=== PATIENT | female | born 1935 | race Caucasian/White ===

== ENCOUNTER → 2017-06-05 08:48 | Outpatient (CLI) | payer MEDICARE, OTHER ==
[2009-06-16 08:25] VITALS: BMI 22.8
== END | disposition home or self-care (01) ==
LOC: D.RAD 05-29 09:30
DX: D64.9 Anemia, unspecified (principal)

== ENCOUNTER 2018-01-18 04:09 | Inpatient (IN) | payer MEDICARE, OTHER ==
[2018-01-18] VITALS (21 sets, daily range): BP systolic 95–159; BP diastolic 6–75; Ht 162.6 cm; Wt 68.0 kg
[~2018-01-18] VITALS: Ht 162.6 cm; Wt 68.0 kg
[2018-01-18] MEDS ORDERED: CYCLOBENZAPRINE10 MG PO (04:18)
[2018-01-18] MEDS ORDERED: COZAAR25 MG PO (04:19)
[2018-01-18] MEDS ORDERED: VOLTAREN100 GM TOPICAL (04:19)
[2018-01-18] MEDS ORDERED: TEMOVATE30 GM TOPICAL (04:20)
[2018-01-18] MEDS ORDERED: VALTREX500 MG PO (04:20)
[2018-01-18] MEDS ORDERED: PROAIR HFA8.5 GM INH (04:20)
[2018-01-18] MEDS ORDERED: ADVAIR 250/501 DISK INH (04:20)
[2018-01-18] MEDS ORDERED: EFFEXOR XR37.5 MG PO (04:21)
[2018-01-18] MEDS ORDERED: ANASTROZOLE1 MG PO (04:21)
[2018-01-18] MEDS ORDERED: VITAMIN B-1250 MG PO (04:21)
[2018-01-18] MEDS ORDERED: MELATONIN5 MG PO (04:21)
[2018-01-18] MEDS ORDERED: NYSTATIN OINTME15 GM TOPICAL (04:21)
[2018-01-18] MEDS ORDERED: UNISOM SLEEP AI25 MG PO (04:22)
[2018-01-18] MEDS ORDERED: OMEPRAZOLE40 MG PO (04:22)
[2018-01-18] MEDS ORDERED: VITAMIN D31000 UNI2 PO (04:22)
[2018-01-18] MEDS ORDERED: PROBIOTIC1 EAC1 PO (04:22)
[2018-01-18 04:48] LABS: BASOPHILS 0.2 % (0-2); EOSINOPHILS 0.2 % (0-7); HEMATOCRIT 27.5 % (36.0-48.0); HEMOGLOBIN 8.7 g/dL (12-16); IMMATURE GRANULOCYTES 1.4 % (0-5); LYMPHOCYTES 27.1 % (15-50); MCH 32.1 pg (26.0-34.0); MCHC 31.6 g/dL (31.0-37.0); MCV 101.5 fL (80.0-100.0); MEAN PLATELET VOLUME 10.7 fL (7.4-10.4); MONOCYTES 11.2 % (2-11); NEUTROPHILS 59.9 % (40-80); PLATELET COUNT 219 10x3/uL (130-400); RBC 2.71 10x6/uL (4.00-5.40); RDW 14.8 % (11.5-14.5); WBC 12.1 10x3/uL (4.8-10.8)
[2018-01-18 05:15] LABS: INR 1.05 (0.85-1.17); PROTIME 13.3 SECONDS (11.6-15.0)
[2018-01-18 05:35] LABS: ALBUMIN 2.8 g/dL (3.4-5.0); ALKALINE PHOSPHATASE 67 U/L (46-116); ALT (SGPT) 25 U/L (10-68); CALC OSMOLALITY 294 mosm/kg (275-300); CALCIUM 7.7 mg/dL (8.5-10.1); CARBON DIOXIDE 24.7 mmol/L (21.0-32.0); CHLORIDE - SERUM 109 mmol/L (98-107); CREATININE - SERUM 0.7 mg/dL (0.6-1.3); GLUCOSE 96 mg/dL (74-106); PROTEIN - SERUM 5.6 g/dL (6.4-8.2); SODIUM 142 mmol/L (136-145); UREA NITROGEN 46 mg/dL (7-18); eGFR NON AFRICAN AMERICAN 84 mL/min (90-120)
[2018-01-18] MEDS ORDERED: CO Q-10100 MG PO (09:18)
[2018-01-18] MEDS ORDERED: VITAMIN E400 UNI2 PO (09:19)
[2018-01-18] MEDS ORDERED: MULTIPLE VITAMI1 TA1 PO (09:19)
[2018-01-18] MEDS ORDERED: CALCIUM 600+D T1 TA1 PO (09:20)
[2018-01-18] MEDS ORDERED: BIOTIN5 MG PO (09:20)
[2018-01-18 16:44] LABS: BASOPHILS 0.3 % (0-2); EOSINOPHILS 0.4 % (0-7); HEMATOCRIT 26.6 % (36.0-48.0); HEMOGLOBIN 8.5 g/dL (12-16); IMMATURE GRANULOCYTES 1.3 % (0-5); LYMPHOCYTES 26.1 % (15-50); MCH 32.8 pg (26.0-34.0); MCV 102.7 fL (80.0-100.0); MEAN PLATELET VOLUME 10.4 fL (7.4-10.4); MONOCYTES 9.3 % (2-11); NEUTROPHILS 62.6 % (40-80); PLATELET COUNT 202 10x3/uL (130-400); RBC 2.59 10x6/uL (4.00-5.40); WBC 11.9 10x3/uL (4.8-10.8)
[2018-01-19] VITALS (25 sets, daily range): BP systolic 96–135; BP diastolic 48–92
[2018-01-19 04:22] LABS: BASOPHILS 0.3 % (0-2); EOSINOPHILS 1.1 % (0-7); HEMATOCRIT 21.9 % (36.0-48.0); IMMATURE GRANULOCYTES 1.8 % (0-5); LYMPHOCYTES 31.2 % (15-50); MCH 32.9 pg (26.0-34.0); MCV 102.8 fL (80.0-100.0); MEAN PLATELET VOLUME 10.6 fL (7.4-10.4); MONOCYTES 8.2 % (2-11); NEUTROPHILS 57.4 % (40-80); PLATELET COUNT 167 10x3/uL (130-400); RBC 2.13 10x6/uL (4.00-5.40); RDW 15.2 % (11.5-14.5)
[2018-01-19 04:38] LABS: WBC 8.8 10x3/uL (4.8-10.8)
[2018-01-19 05:04] LABS: ANION GAP 10.9 mmol/L (8-16); CALCIUM 7.6 mg/dL (8.5-10.1); CREATININE - SERUM 0.8 mg/dL (0.6-1.3); POTASSIUM - SERUM 3.9 mmol/L (3.5-5.1)
[2018-01-20] VITALS (24 sets, daily range): BP systolic 90–126; BP diastolic 55–90
[2018-01-20 04:28] LABS: BASOPHILS 0.4 % (0-2); EOSINOPHILS 1.5 % (0-7); IMMATURE GRANULOCYTES 1.6 % (0-5); LYMPHOCYTES 31.3 % (15-50); MCH 31.8 pg (26.0-34.0); MCHC 33.3 g/dL (31.0-37.0); MEAN PLATELET VOLUME 11.4 fL (7.4-10.4); NEUTROPHILS 56.2 % (40-80); RDW 17.4 % (11.5-14.5); WBC 7.3 10x3/uL (4.8-10.8)
[2018-01-20 04:30] LABS: HEMATOCRIT 27.6 % (36.0-48.0); HEMOGLOBIN 9.2 g/dL (12-16); MCV 95.5 fL (80.0-100.0); PLATELET COUNT 111 10x3/uL (130-400); RBC 2.89 10x6/uL (4.00-5.40)
[2018-01-20 04:31] LABS: INR 1.07 (0.85-1.17); PROTIME 13.5 SECONDS (11.6-15.0)
[2018-01-20 04:43] LABS: ALBUMIN 2.4 g/dL (3.4-5.0); ALKALINE PHOSPHATASE 67 U/L (46-116); ALT (SGPT) 27 U/L (10-68); BILIRUBIN - TOTAL 0.46 mg/dL (0.2-1.3); CALCIUM 7.9 mg/dL (8.5-10.1); CARBON DIOXIDE 26.9 mmol/L (21.0-32.0); CHLORIDE - SERUM 110 mmol/L (98-107); CREATININE - SERUM 0.7 mg/dL (0.6-1.3); GLUCOSE 102 mg/dL (74-106); POTASSIUM - SERUM 3.6 mmol/L (3.5-5.1); SODIUM 140 mmol/L (136-145); eGFR NON AFRICAN AMERICAN 84 mL/min (90-120)
[2018-01-20 04:48] LABS: CALC OSMOLALITY 277 mosm/kg (275-300); UREA NITROGEN 9 mg/dL (7-18)
[2018-01-21] VITALS (15 sets, daily range): BP systolic 90–168; BP diastolic 52–106
[2018-01-21 03:57] LABS: BASOPHILS 0.4 % (0-2); EOSINOPHILS 1.7 % (0-7); HEMATOCRIT 27.7 % (36.0-48.0); HEMOGLOBIN 9.1 g/dL (12-16); IMMATURE GRANULOCYTES 1.1 % (0-5); LYMPHOCYTES 31.8 % (15-50); MCH 31.8 pg (26.0-34.0); MCHC 32.9 g/dL (31.0-37.0); MCV 96.9 fL (80.0-100.0); MEAN PLATELET VOLUME 10.7 fL (7.4-10.4); MONOCYTES 7.2 % (2-11); NEUTROPHILS 57.8 % (40-80); RBC 2.86 10x6/uL (4.00-5.40); RDW 17.4 % (11.5-14.5); WBC 7.6 10x3/uL (4.8-10.8)
[2018-01-21 04:03] LABS: PLATELET COUNT 198 10x3/uL (130-400)
[2018-01-21 04:33] LABS: ALBUMIN 2.4 g/dL (3.4-5.0); ALKALINE PHOSPHATASE 73 U/L (46-116); ALT (SGPT) 31 U/L (10-68); BILIRUBIN - TOTAL 0.43 mg/dL (0.2-1.3); CALC OSMOLALITY 280 mosm/kg (275-300); CALCIUM 7.6 mg/dL (8.5-10.1); CARBON DIOXIDE 25.5 mmol/L (21.0-32.0); CHLORIDE - SERUM 110 mmol/L (98-107); CREATININE - SERUM 0.6 mg/dL (0.6-1.3); GLUCOSE 93 mg/dL (74-106); POTASSIUM - SERUM 3.4 mmol/L (3.5-5.1); PROTEIN - SERUM 5.1 g/dL (6.4-8.2); SODIUM 142 mmol/L (136-145); eGFR NON AFRICAN AMERICAN > 90 mL/min (90-120)
[2018-01-21 04:37] LABS: UREA NITROGEN 6 mg/dL (7-18)
[2018-01-22 05:29] VITALS: BP 137/77
[2018-01-22 06:48] LABS: BASOPHILS 0.3 % (0-2); EOSINOPHILS 1.9 % (0-7); HEMATOCRIT 27.7 % (36.0-48.0); HEMOGLOBIN 9.1 g/dL (12-16); IMMATURE GRANULOCYTES 1.5 % (0-5); MCHC 32.9 g/dL (31.0-37.0); MCV 97.5 fL (80.0-100.0); MEAN PLATELET VOLUME 10.6 fL (7.4-10.4); MONOCYTES 10.8 % (2-11); NEUTROPHILS 62.5 % (40-80); PLATELET COUNT 206 10x3/uL (130-400); RBC 2.84 10x6/uL (4.00-5.40); RDW 17.3 % (11.5-14.5); WBC 7.5 10x3/uL (4.8-10.8)
[2018-01-22 07:04] LABS: CALCIUM 7.6 mg/dL (8.5-10.1); CARBON DIOXIDE 26.5 mmol/L (21.0-32.0); CREATININE - SERUM 0.8 mg/dL (0.6-1.3); MAGNESIUM - SERUM 1.6 mg/dL (1.8-2.4); POTASSIUM - SERUM 3.5 mmol/L (3.5-5.1)
[2018-01-22] MEDS ORDERED: CARAFATE1 G/10 ML PO (10:21)
[2018-01-22] MEDS ORDERED: PROTONIX40 MG PO (10:21)
[2018-01-22 13:06] VITALS: BP 145/76
== END 2018-01-22 15:09 | disposition home or self-care (01) | DRG 811 ==
LOC: D.ER 04:09 → D.M2 05:11 → D.EDHOLD 05:11 → D.ICU 05:11 → D.EDHOLD 05:12 → D.ICU 05:58 → D.M2 01-21 16:14
PROVIDERS: Family Medicine; Internal Medicine Gastroenterology
PROC: 0DB68ZX Excision of Stomach, Via Natural or Artificial Opening Endoscopic, Diagnostic (ICD-10-PCS; principal; 2018-01-18 10:30)
DX: D62 Acute posthemorrhagic anemia (principal); K25.4 Chronic or unspecified gastric ulcer with hemorrhage; K44.9 Diaphragmatic hernia without obstruction or gangrene; J44.9 Chronic obstructive pulmonary disease, unspecified; I10 Essential (primary) hypertension; K21.9 Gastro-esophageal reflux disease without esophagitis; I25.10 Atherosclerotic heart disease of native coronary artery without angina pectoris; Z85.3 Personal history of malignant neoplasm of breast; Z87.891 Personal history of nicotine dependence